=== PATIENT | male | born 1970 | race Caucasian/White ===

== ENCOUNTER 2019-11-26 16:00 | Inpatient (IN) ==
[2019-11-26 16:58] LABS: Basophils # 0.1 K/mcL (0.0-0.2); Basophils % 0.7 %; Eosinophils % 0.4 %; Hematocrit 38.8 % (37.5-50.1); Hemoglobin 13.4 g/dL (12.9-16.9); Immature Granulocytes % 0.7 % (0-4); Lymphocytes # 1.9 K/mcL (0.6-4.6); Lymphocytes % 25.9 %; Mean Corpuscular HGB Conc 34.5 g/dL (31.6-35.5); Mean Corpuscular Hemoglobin 34.3 pg (28.0-33.3); Mean Corpuscular Volume 99.2 fL (83.0-100.0); Mean Platelet Volume 9.9 fL (9.4-12.4); Monocytes # 0.8 K/mcL (0.0-1.3); Monocytes % 10.5 %; Neutrophils # 4.5 K/mcL (1.6-8.9); Platelet Count 133 K/mcL (140-400); Red Blood Count 3.91 M/mcL (4.19-5.50); Segmented Neutrophils % 61.8 %; White Blood Count 7.2 K/mcL (4.3-11.1)
[2019-11-26 17:05] LABS: INR 1.2; Prothrombin Time 14.1 Seconds (9.4-12.1)
[2019-11-26 17:07] LABS: Activated Partial Thrombo Time 29.9 Seconds (26.0-36.0)
[2019-11-26 17:20] LABS: Alanine Aminotransferase 98 Units/L (7-52); Albumin 2.8 g/dL (3.5-5.7); Albumin/Globulin Ratio 1.1 (1.1-2.2); Alkaline Phosphatase 203 Units/L (34-104); Amylase 36 Units/L (29-103); Aspartate Amino Transferase 237 Units/L (13-39); BUN/Creatinine Ratio 20 (6-26); Bilirubin,Direct 0.9 mg/dL (0.0-0.2); Bilirubin,Indirect 1.1 mg/dL (0.0-1.0); Blood Urea Nitrogen 11 mg/dL (6-20); Calcium 7.8 mg/dL (8.6-10.3); Carbon Dioxide 29 mEq/L (23-29); Chloride 94 mEq/L (98-107); Globulin 2.6 g/dL (2.4-3.5); Glucose 87 mg/dL (70-105); Lipase 104 Units/L (11-82); Osmolality,Calculated 273 (280-300); Potassium 3.4 mEq/L (3.5-5.1); Sodium 132 mEq/L (136-145); Total Protein 5.4 g/dL (6.4-8.9); Troponin I 0.03 ng/mL (< 0.04); eGFR For African Americans > 60 (> 60); eGFR For Non-African Americans > 60 (> 60)
[2019-11-26] MEDS ORDERED: cefTRIAXone 1,000 MG in Water for inj. (sterile) 10 ML IVP ONE ×2 (17:20→18:21)
[2019-11-26] MEDS ORDERED: MetroNIDAZOLE 500 MG/100 ML 500 MG/100 ML BAG IVPB ONE (17:48)
[2019-11-26] MEDS ORDERED: Nicotine 2 MG GUM BC PRN (18:19)
[2019-11-26] MEDS ORDERED: *HR* LORazepam 2 MG/ML VIAL IVP PRN (18:19)
[2019-11-26 18:29] LABS: RBC,Peritoneal Fluid < 0.002 M/mcL
[2019-11-26 18:50] LABS: Glucose,Peritoneal Fluid 91 mg/dL (No Ref Range); LDH,Peritoneal Fluid 110 Units/L (No Ref Range); Total Protein,Peritoneal Fluid < 3.0 g/dL
[2019-11-26] MEDS: Folic Acid 1 MG TABLET PO SCH (20:20)
[2019-11-26] MEDS: Vitamin B Complex/Vit C/Vit E 1 EACH TABLET PO SCH (20:20)
[2019-11-26] MEDS: Thiamine (B-1) 100 MG TABLET PO SCH (20:20)
[2019-11-26 20:25] LABS: Basophils,Peritoneal Fluid 0 %; Eosinophils,Peritoneal Fluid 0 %
[2019-11-26 20:46] LABS: Appearance of Peritoneal Fl CLEAR (Clear)
[2019-11-26] MEDS: Albumin 25% 25gram/100mL 25 GM/100 ML IV.SOLN IVC SCH ×2 (21:15→23:07)
[2019-11-26] MEDS: *HR* LORazepam 2 MG/ML VIAL IVP PRN (21:16)
[2019-11-26] MEDS: Lactulose Oral Soln 20 GM/30 ML UDC PO SCH (21:16)
[2019-11-26] MEDS: Azithromycin 250 MG TABLET PO SCH (21:26)
[2019-11-26 22:36] LABS: Bilirubin,Urine Small (Negative); Blood,Urine Negative (Negative); Clarity,Urine Clear (Clear); Color,Urine Dark Yellow (Yellow); Glucose,Urine (UA) Normal (Normal); Ketones,Urine Trace mg/dL (Negative); Leukocyte Esterase,Urine Negative (Negative); Nitrite,Urine Negative (Negative); PH,Urine 6.5 pH Units (5.0-8.0); Protein,Urine Trace mg/dL (Neg-Trace); Specific Gravity,Urine > 1.030 (1.010-1.025)
[2019-11-26] MEDS: metroNIDAZOLE 500 MG TABLET PO SCH (23:14)
[2019-11-27] MEDS: Albumin 25% 25gram/100mL 25 GM/100 ML IV.SOLN IVC SCH ×4 (00:49→05:46)
[2019-11-27] MEDS: *HR* LORazepam 2 MG/ML VIAL IVP PRN ×2 (00:58→13:45)
[2019-11-27] MEDS ORDERED: Ibuprofen 600 MG TABLET PO ONE (03:25)
[2019-11-27 07:46] LABS: Basophils % 0.3 %; Eosinophils % 0.6 %; Hematocrit 33.8 % (37.5-50.1); Immature Granulocytes % 0.4 % (0-4); Lymphocytes # 2.2 K/mcL (0.6-4.6); Lymphocytes % 31.9 %; Mean Corpuscular HGB Conc 33.7 g/dL (31.6-35.5); Mean Corpuscular Hemoglobin 33.9 pg (28.0-33.3); Mean Corpuscular Volume 100.6 fL (83.0-100.0); Mean Platelet Volume 9.6 fL (9.4-12.4); Monocytes # 0.9 K/mcL (0.0-1.3); Monocytes % 13.2 %; Neutrophils # 3.8 K/mcL (1.6-8.9); Platelet Count 110 K/mcL (140-400); Red Blood Count 3.36 M/mcL (4.19-5.50); Segmented Neutrophils % 53.6 %
[2019-11-27 07:47] LABS: Hemoglobin 11.4 g/dL (12.9-16.9)
[2019-11-27 08:02] LABS: Alanine Aminotransferase 75 Units/L (7-52); Albumin 3.6 g/dL (3.5-5.7); Albumin/Globulin Ratio 1.9 (1.1-2.2); Alkaline Phosphatase 174 Units/L (34-104); Aspartate Amino Transferase 185 Units/L (13-39); BUN/Creatinine Ratio 14 (6-26); Bilirubin,Total 2.5 mg/dL (0.3-1.0); Blood Urea Nitrogen 9 mg/dL (6-20); Calcium 8.2 mg/dL (8.6-10.3); Carbon Dioxide 31 mEq/L (23-29); Chloride 98 mEq/L (98-107); Globulin 1.9 g/dL (2.4-3.5); Glucose 97 mg/dL (70-105); Osmolality,Calculated 279 (280-300); Potassium 3.5 mEq/L (3.5-5.1); Sodium 135 mEq/L (136-145); Total Protein 5.5 g/dL (6.4-8.9); eGFR For African Americans > 60 (> 60); eGFR For Non-African Americans > 60 (> 60)
[2019-11-27] MEDS: cefTRIAXone 2,000 MG in Water for inj. (sterile) 20 ML IVP SCH (09:07)
[2019-11-27] MEDS: Thiamine (B-1) 100 MG TABLET PO SCH (09:10)
[2019-11-27] MEDS: Azithromycin 250 MG TABLET PO SCH (09:10)
[2019-11-27] MEDS: metroNIDAZOLE 500 MG TABLET PO SCH ×3 (09:10→21:36)
[2019-11-27] MEDS: Vitamin B Complex/Vit C/Vit E 1 EACH TABLET PO SCH (09:15)
[2019-11-27] MEDS: Folic Acid 1 MG TABLET PO SCH (09:15)
[2019-11-27] MEDS: *HR* Promethazine 25 MG/ML VIAL IVP PRN ×2 (11:04→19:41)
[2019-11-27] MEDS: Lactulose Oral Soln 20 GM/30 ML UDC PO SCH (21:37)
[2019-11-27] MEDS ORDERED: Melatonin 3 MG TABLET PO ONE (23:04)
[2019-11-28 00:58] LABS: Eosinophils % 1.2 %; Mean Platelet Volume 10.2 fL (9.4-12.4)
[2019-11-28 01:00] LABS: Basophils % 0.4 %; Eosinophils # 0.1 K/mcL (0.0-0.6); Hematocrit 34.3 % (37.5-50.1); Hemoglobin 11.7 g/dL (12.9-16.9); Immature Granulocytes % 0.9 % (0-4); Immature Platelets 2.9 % (1.1-6.1); Lymphocytes # 1.9 K/mcL (0.6-4.6); Mean Corpuscular HGB Conc 34.1 g/dL (31.6-35.5); Mean Corpuscular Hemoglobin 34.4 pg (28.0-33.3); Mean Corpuscular Volume 100.9 fL (83.0-100.0); Monocytes # 0.8 K/mcL (0.0-1.3); Monocytes % 13.2 %; Neutrophils # 2.9 K/mcL (1.6-8.9); Platelet Count 100 K/mcL (140-400); Red Cell Distribution Width 13.5 % (11.5-14.5); Segmented Neutrophils % 50.3 %; White Blood Count 5.7 K/mcL (4.3-11.1)
[2019-11-28 01:15] LABS: Alanine Aminotransferase 69 Units/L (7-52); Albumin 3.2 g/dL (3.5-5.7); Albumin/Globulin Ratio 1.5 (1.1-2.2); Alkaline Phosphatase 166 Units/L (34-104); Aspartate Amino Transferase 159 Units/L (13-39); BUN/Creatinine Ratio 12 (6-26); Bilirubin,Total 2.5 mg/dL (0.3-1.0); Blood Urea Nitrogen 7 mg/dL (6-20); Carbon Dioxide 26 mEq/L (23-29); Chloride 102 mEq/L (98-107); Globulin 2.1 g/dL (2.4-3.5); Glucose 97 mg/dL (70-105); Osmolality,Calculated 278 (280-300); Potassium 3.4 mEq/L (3.5-5.1); Sodium 135 mEq/L (136-145); Total Protein 5.3 g/dL (6.4-8.9); eGFR For African Americans > 60 (> 60); eGFR For Non-African Americans > 60 (> 60)
[2019-11-28 01:17] LABS: Platelet Estimate Decreased (Normal)
[2019-11-28] MEDS: cefTRIAXone 2,000 MG in Water for inj. (sterile) 20 ML IVP SCH (07:59)
[2019-11-28] MEDS: Folic Acid 1 MG TABLET PO SCH (08:00)
[2019-11-28] MEDS: metroNIDAZOLE 500 MG TABLET PO SCH ×3 (08:00→21:15)
[2019-11-28] MEDS: Thiamine (B-1) 100 MG TABLET PO SCH (08:00)
[2019-11-28] MEDS: Azithromycin 250 MG TABLET PO SCH (08:00)
[2019-11-28] MEDS: Vitamin B Complex/Vit C/Vit E 1 EACH TABLET PO SCH (08:00)
[2019-11-28] MEDS ORDERED: Gadolinium Contrast Agent (WT Based) IV PRN (11:35)
[2019-11-28] MEDS ORDERED: Furosemide 20 MG TABLET PO PRN (11:56)
[2019-11-28] MEDS: *HR* LORazepam 2 MG/ML VIAL IVP PRN ×2 (21:14)
[2019-11-28] MEDS: Lactulose Oral Soln 20 GM/30 ML UDC PO SCH (21:15)
[2019-11-28 23:09] LABS: Fluid Source for Albumin ASCITES
[2019-11-29] MEDS ORDERED: *HR* OxyCODONE Immed Rel 5 MG TABLET PO PRN (00:01)
[2019-11-29] MEDS: cefTRIAXone 2,000 MG in Water for inj. (sterile) 20 ML IVP SCH (07:52)
[2019-11-29] MEDS: Thiamine (B-1) 100 MG TABLET PO SCH (07:53)
[2019-11-29] MEDS: metroNIDAZOLE 500 MG TABLET PO SCH ×3 (07:53→19:03)
[2019-11-29] MEDS: Vitamin B Complex/Vit C/Vit E 1 EACH TABLET PO SCH (07:53)
[2019-11-29] MEDS: Folic Acid 1 MG TABLET PO SCH (07:53)
[2019-11-29] MEDS: Azithromycin 250 MG TABLET PO SCH (07:53)
[2019-11-29] MEDS: *HR* HYDROcodone/Acet 5/325 mg TABLET PO PRN ×2 (08:35→22:36)
[2019-11-29 08:55] LABS: Hematocrit 40.4 % (37.5-50.1); Hemoglobin 13.9 g/dL (12.9-16.9); Immature Platelets 2.9 % (1.1-6.1); Mean Corpuscular HGB Conc 34.4 g/dL (31.6-35.5); Mean Corpuscular Hemoglobin 34.9 pg (28.0-33.3); Mean Corpuscular Volume 101.5 fL (83.0-100.0); Mean Platelet Volume 10.4 fL (9.4-12.4); Neutrophils # 4.1 K/mcL (1.6-8.9); Platelet Count 131 K/mcL (140-400); Red Blood Count 3.98 M/mcL (4.19-5.50); Red Cell Distribution Width 13.2 % (11.5-14.5); White Blood Count 7.6 K/mcL (4.3-11.1)
[2019-11-29 09:13] LABS: Alanine Aminotransferase 62 Units/L (7-52); Albumin 3.5 g/dL (3.5-5.7); Albumin/Globulin Ratio 1.4 (1.1-2.2); Alkaline Phosphatase 154 Units/L (34-104); Aspartate Amino Transferase 118 Units/L (13-39); BUN/Creatinine Ratio 17 (6-26); Bilirubin,Total 2.1 mg/dL (0.3-1.0); Blood Urea Nitrogen 11 mg/dL (6-20); Calcium 8.5 mg/dL (8.6-10.3); Carbon Dioxide 22 mEq/L (23-29); Chloride 106 mEq/L (98-107); Globulin 2.5 g/dL (2.4-3.5); Glucose 103 mg/dL (70-105); Osmolality,Calculated 282 (280-300); Potassium 3.5 mEq/L (3.5-5.1); Sodium 136 mEq/L (136-145); eGFR For African Americans > 60 (> 60); eGFR For Non-African Americans > 60 (> 60)
[2019-11-29 09:43] LABS: Basophils # 0.2 K/mcL (0.0-0.2); Lymphocytes # 2.9 K/mcL (0.6-4.6); Monocytes # 0.5 K/mcL (0.0-1.3); Platelet Estimate Slight Decrease (Normal); Reactive Lymphocytes Present (Not Present)
[2019-11-29 09:44] LABS: Hypochromasia Present (Not Present); Polychromasia 1+ (Not Present)
[2019-11-29] MEDS: *HR* OxyCODONE Immed Rel 5 MG TABLET PO ONE ×2 (14:25→14:28)
[2019-11-29] MEDS: Lactulose Oral Soln 20 GM/30 ML UDC PO SCH (19:02)
[2019-11-29] MEDS: *HR* LORazepam 2 MG/ML VIAL IVP PRN (19:03)
[2019-11-30] MEDS: *HR* LORazepam 2 MG/ML VIAL IVP PRN ×2 (02:43→13:35)
[2019-11-30 03:24] LABS: Basophils % 0.4 %; Eosinophils # 0.1 K/mcL (0.0-0.6); Hematocrit 37.5 % (37.5-50.1); Hemoglobin 12.6 g/dL (12.9-16.9); Immature Granulocytes % 0.9 % (0-4); Lymphocytes # 2.2 K/mcL (0.6-4.6); Lymphocytes % 22.7 %; Mean Corpuscular HGB Conc 33.6 g/dL (31.6-35.5); Mean Corpuscular Hemoglobin 34.5 pg (28.0-33.3); Mean Corpuscular Volume 102.7 fL (83.0-100.0); Mean Platelet Volume 10.8 fL (9.4-12.4); Monocytes # 0.7 K/mcL (0.0-1.3); Monocytes % 6.7 %; Neutrophils # 6.7 K/mcL (1.6-8.9); Platelet Count 138 K/mcL (140-400); Red Blood Count 3.65 M/mcL (4.19-5.50); Red Cell Distribution Width 13.7 % (11.5-14.5); Segmented Neutrophils % 68.3 %; White Blood Count 9.8 K/mcL (4.3-11.1)
[2019-11-30 03:43] LABS: Alanine Aminotransferase 51 Units/L (7-52); Albumin 3.2 g/dL (3.5-5.7); Albumin/Globulin Ratio 1.4 (1.1-2.2); Alkaline Phosphatase 150 Units/L (34-104); Aspartate Amino Transferase 81 Units/L (13-39); BUN/Creatinine Ratio 27 (6-26); Bilirubin,Total 1.8 mg/dL (0.3-1.0); Blood Urea Nitrogen 17 mg/dL (6-20); Calcium 8.6 mg/dL (8.6-10.3); Carbon Dioxide 22 mEq/L (23-29); Chloride 108 mEq/L (98-107); Globulin 2.3 g/dL (2.4-3.5); Glucose 95 mg/dL (70-105); Osmolality,Calculated 283 (280-300); Potassium 3.8 mEq/L (3.5-5.1); Sodium 136 mEq/L (136-145); Total Protein 5.5 g/dL (6.4-8.9); eGFR For African Americans > 60 (> 60); eGFR For Non-African Americans > 60 (> 60)
[2019-11-30] MEDS: cefTRIAXone 2,000 MG in Water for inj. (sterile) 20 ML IVP SCH (09:38)
[2019-11-30] MEDS: metroNIDAZOLE 500 MG TABLET PO SCH ×3 (09:39→21:43)
[2019-11-30] MEDS: Vitamin B Complex/Vit C/Vit E 1 EACH TABLET PO SCH (09:39)
[2019-11-30] MEDS: Thiamine (B-1) 100 MG TABLET PO SCH (09:40)
[2019-11-30] MEDS: Folic Acid 1 MG TABLET PO SCH (09:41)
[2019-11-30] MEDS: Lactulose Oral Soln 20 GM/30 ML UDC PO SCH (21:41)
[2019-11-30] MEDS: *HR* HYDROcodone/Acet 5/325 mg TABLET PO PRN (21:43)
[2019-12-01] MEDS: traZODone 50 MG TABLET PO PRN ×2 (01:14→20:47)
[2019-12-01 05:45] LABS: Hematocrit 37.3 % (37.5-50.1); Hemoglobin 12.4 g/dL (12.9-16.9); Mean Corpuscular HGB Conc 33.2 g/dL (31.6-35.5); Mean Corpuscular Hemoglobin 34.4 pg (28.0-33.3); Mean Corpuscular Volume 103.6 fL (83.0-100.0); Mean Platelet Volume 10.6 fL (9.4-12.4); Platelet Count 136 K/mcL (140-400); Red Cell Distribution Width 13.3 % (11.5-14.5); White Blood Count 8.3 K/mcL (4.3-11.1)
[2019-12-01 05:47] LABS: INR 1.5
[2019-12-01 06:11] LABS: BUN/Creatinine Ratio 28 (6-26); Blood Urea Nitrogen 17 mg/dL (6-20); Calcium 8.3 mg/dL (8.6-10.3); Carbon Dioxide 22 mEq/L (23-29); Chloride 108 mEq/L (98-107); Glucose 123 mg/dL (70-105); Osmolality,Calculated 285 (280-300); Potassium 3.5 mEq/L (3.5-5.1); Sodium 136 mEq/L (136-145); eGFR For African Americans > 60 (> 60); eGFR For Non-African Americans > 60 (> 60)
[2019-12-01 06:12] LABS: Albumin 3.1 g/dL (3.5-5.7); Albumin/Globulin Ratio 1.3 (1.1-2.2); Bilirubin,Direct 0.6 mg/dL (0.0-0.2); Bilirubin,Indirect 0.8 mg/dL (0.0-1.0); Bilirubin,Total 1.4 mg/dL (0.3-1.0); Globulin 2.3 g/dL (2.4-3.5); Total Protein 5.4 g/dL (6.4-8.9)
[2019-12-01] MEDS: metroNIDAZOLE 500 MG TABLET PO SCH ×3 (08:51→20:46)
[2019-12-01] MEDS: Folic Acid 1 MG TABLET PO SCH (08:51)
[2019-12-01] MEDS: Vitamin B Complex/Vit C/Vit E 1 EACH TABLET PO SCH (08:51)
[2019-12-01] MEDS: cefTRIAXone 2,000 MG in Water for inj. (sterile) 20 ML IVP SCH (08:52)
[2019-12-01] MEDS: Thiamine (B-1) 100 MG TABLET PO SCH (08:52)
[2019-12-01] MEDS: Furosemide 20 MG TABLET PO SCH (08:52)
[2019-12-01] MEDS: Lactulose Oral Soln 20 GM/30 ML UDC PO SCH (20:46)
[2019-12-02 07:48] VITALS: BP 132/74
[2019-12-02] MEDS: Vitamin B Complex/Vit C/Vit E 1 EACH TABLET PO SCH (09:36)
[2019-12-02] MEDS: Thiamine (B-1) 100 MG TABLET PO SCH (09:36)
[2019-12-02] MEDS: metroNIDAZOLE 500 MG TABLET PO SCH (09:36)
[2019-12-02] MEDS: Furosemide 20 MG TABLET PO SCH (09:36)
[2019-12-02] MEDS: Folic Acid 1 MG TABLET PO SCH (09:36)
== END 2019-12-02 12:05 | disposition home or self-care (01) | DRG 432 ==
LOC: EMEROOARM 16:00 → 3ANU 16:00 → SUATTDRO 19:29 → 3ANU 19:31 → SUATTDRO 11-27 11:13
PROVIDERS: ADMIT Internal Medicine; ATTEND Internal Medicine

== ENCOUNTER 2020-09-22 13:13 | Inpatient (IN) ==
[2020-09-22] MEDS ORDERED: Ondansetron 4 MG/2 ML VIAL IVP ONE (13:25)
[2020-09-22] MEDS ORDERED: 0.9 % Sodium Chloride 1,000 ML IVC ONE (13:25)
[2020-09-22] MEDS ORDERED: *HR* LORazepam 2 MG/ML VIAL IVP ONE (13:25)
[2020-09-22] MEDS ORDERED: Pantoprazole 80 MG in 0.9 % Sodium Chloride 50 ML IVPB ONE (13:25)
[2020-09-22] MEDS ORDERED: Isovue-370 500 ML BOTTLE IVP ONE (13:27)
[2020-09-22] MEDS ORDERED: Pantoprazole 40 MG in 0.9 % Sodium Chloride Mini Bag 100 ML IVC SCH (13:30)
[2020-09-22] MEDS ORDERED: Pantoprazole 40 MG VIAL IVP ONE (13:32)
[2020-09-22 14:12] LABS: INR 1.2; Prothrombin Time 13.9 Seconds (9.4-12.1)
[2020-09-22 14:15] LABS: Basophils % 0.6 %; Eosinophils % 0.5 %; Hematocrit 41.8 % (37.5-50.1); Hemoglobin 14.3 g/dL (12.9-16.9); Immature Granulocytes % 0.2 % (0-4); Lymphocytes # 2.4 K/mcL (0.6-4.6); Lymphocytes % 36.3 %; Mean Corpuscular HGB Conc 34.2 g/dL (31.6-35.5); Mean Corpuscular Hemoglobin 30.8 pg (28.0-33.3); Mean Corpuscular Volume 90.1 fL (83.0-100.0); Mean Platelet Volume 10.1 fL (9.4-12.4); Monocytes # 0.5 K/mcL (0.0-1.3); Monocytes % 7.4 %; Neutrophils # 3.6 K/mcL (1.6-8.9); Platelet Count 115 K/mcL (140-400); Red Blood Count 4.64 M/mcL (4.19-5.50); Red Cell Distribution Width 14.9 % (11.5-14.5); White Blood Count 6.6 K/mcL (4.3-11.1)
[2020-09-22 14:45] LABS: Alanine Aminotransferase 134 Units/L (7-52); Albumin 3.5 g/dL (3.5-5.7); Albumin/Globulin Ratio 1.1 (1.1-2.2); Alkaline Phosphatase 165 Units/L (34-104); Aspartate Amino Transferase 262 Units/L (13-39); BUN/Creatinine Ratio 17 (6-26); Bilirubin,Total 1.8 mg/dL (0.3-1.0); Blood Urea Nitrogen 15 mg/dL (6-20); Carbon Dioxide 25 mEq/L (23-29); Chloride 97 mEq/L (98-107); Ethanol 271 mg/dL (Less than 10); Globulin 3.1 g/dL (2.4-3.5); Glucose 99 mg/dL (70-105); Lipase 151 Units/L (11-82); Osmolality,Calculated 281 (280-300); Potassium 3.7 mEq/L (3.5-5.1); Sodium 135 mEq/L (136-145); Total Protein 6.6 g/dL (6.4-8.9); Troponin I < 0.03 ng/mL (< 0.04); eGFR For African Americans > 60 (> 60); eGFR For Non-African Americans > 60 (> 60)
[2020-09-22 16:04] LABS: Amorphous Sediment,Urine Few per hpf (None-Few); Bacteria,Urine Few per hpf (None-Few); Bilirubin,Urine Negative (Negative); Blood,Urine Negative (Negative); Clarity,Urine Turbid (Clear); Color,Urine Yellow (Yellow); Glucose,Urine (UA) Normal (Normal); Hyaline Casts,Urine Few per lpf (None Seen); Ketones,Urine Trace mg/dL (Negative); Leukocyte Esterase,Urine Negative (Negative); Mucus,Urine Few per lpf (None-Few); Nitrite,Urine Negative (Negative); Protein,Urine Trace mg/dL (Neg-Trace); RBC,Urine 0-3 per hpf (0-3); Specific Gravity,Urine 1.018 (1.010-1.025); WBC,Urine 0-3 per hpf (0-3)
[2020-09-22 16:13] LABS: Amphetamine Screen,Urine Negative ng/mL (Cutoff=1000); Barbiturate Screen,Urine Negative ng/mL (Cutoff=200); Benzodiazepines Screen,Urine Positive ng/mL (Cutoff=200); Cannabinoid Screen,Urine Positive ng/mL (Cutoff = 50); Cocaine Screen,Urine Negative ng/mL (Cutoff= 300); Opiate Screen,Urine Negative ng/mL (Cutoff=300); Phencyclidine Screen,Urine Negative ng/mL (Cutoff=25)
[2020-09-22] MEDS ORDERED: *HR* LORazepam 2 MG/ML VIAL IVP PRN (17:46)
[2020-09-22] MEDS ORDERED: Naloxone 0.4 MG/ML INJ IVP PRN (17:48)
[2020-09-22] MEDS ORDERED: Acetaminophen 325 MG TABLET PO PRN (17:48)
[2020-09-22] MEDS: *HR* LORazepam 2 MG/ML VIAL IVP PRN ×3 (18:33→22:02)
[2020-09-22] MEDS: *HR* Heparin 5,000 UNIT/ML VIAL SQ SCH (18:34)
[2020-09-22] MEDS: Thiamine (B-1) 200 MG in 0.9 % Sodium Chloride 50 ML IVPB SCH (18:34)
[2020-09-22] MEDS: Folic Acid 1 MG in 0.9 % Sodium Chloride 50 ML IVPB SCH (18:35)
[2020-09-22] MEDS: Pantoprazole 40 MG VIAL IVP SCH (20:06)
[2020-09-23] MEDS ORDERED: Dextrose Gel 15 GM/37.5 ML TUBE PO PRN ×2 (00:40)
[2020-09-23] MEDS ORDERED: D5% in Water 1,000 ML IVC PRN (00:40)
[2020-09-23] MEDS ORDERED: *HR* Dextrose 50 % in Water (Vial) 50 ML VIAL IVP PRN (00:40)
[2020-09-23] MEDS: Melatonin 3 MG TABLET PO SCH ×2 (01:31→20:04)
[2020-09-23] MEDS: *HR* LORazepam 2 MG/ML VIAL IVP PRN ×6 (04:33→23:02)
[2020-09-23] MEDS: *HR* Heparin 5,000 UNIT/ML VIAL SQ SCH ×2 (05:14→17:05)
[2020-09-23] MEDS: Pantoprazole 40 MG VIAL IVP SCH ×2 (05:15→17:06)
[2020-09-23 05:40] LABS: Basophils % 0.5 %; Immature Granulocytes % 0.3 % (0-4)
[2020-09-23 05:41] LABS: Eosinophils # 0.1 K/mcL (0.0-0.6); Eosinophils % 1.1 %; Hematocrit 39.6 % (37.5-50.1); Hemoglobin 13.6 g/dL (12.9-16.9); Immature Platelets 3.9 % (1.1-6.1); Lymphocytes # 2.3 K/mcL (0.6-4.6); Lymphocytes % 38.4 %; Mean Corpuscular HGB Conc 34.3 g/dL (31.6-35.5); Mean Corpuscular Hemoglobin 31.1 pg (28.0-33.3); Mean Corpuscular Volume 90.4 fL (83.0-100.0); Mean Platelet Volume 10.5 fL (9.4-12.4); Monocytes # 0.5 K/mcL (0.0-1.3); Monocytes % 8.4 %; Neutrophils # 3.1 K/mcL (1.6-8.9); Red Blood Count 4.38 M/mcL (4.19-5.50); Red Cell Distribution Width 15.1 % (11.5-14.5); Segmented Neutrophils % 51.3 %; White Blood Count 6.1 K/mcL (4.3-11.1)
[2020-09-23 05:59] LABS: Platelet Count 87 K/mcL (140-400)
[2020-09-23 06:00] LABS: Large Platelets Present (Not Present); Platelet Estimate Slight Decrease (Normal)
[2020-09-23 06:03] LABS: Alanine Aminotransferase 111 Units/L (7-52); Albumin 3.5 g/dL (3.5-5.7); Albumin/Globulin Ratio 1.3 (1.1-2.2); Alkaline Phosphatase 140 Units/L (34-104); Aspartate Amino Transferase 203 Units/L (13-39); BUN/Creatinine Ratio 14 (6-26); Bilirubin,Total 2.4 mg/dL (0.3-1.0); Blood Urea Nitrogen 14 mg/dL (6-20); Calcium 8.1 mg/dL (8.6-10.3); Carbon Dioxide 25 mEq/L (23-29); Chloride 101 mEq/L (98-107); Globulin 2.8 g/dL (2.4-3.5); Glucose 88 mg/dL (70-105); Lipase 112 Units/L (11-82); Osmolality,Calculated 286 (280-300); Potassium 3.5 mEq/L (3.5-5.1); Sodium 138 mEq/L (136-145); Total Protein 6.3 g/dL (6.4-8.9); eGFR For African Americans > 60 (> 60); eGFR For Non-African Americans > 60 (> 60)
[2020-09-23] MEDS: Thiamine (B-1) 200 MG in 0.9 % Sodium Chloride 50 ML IVPB SCH (12:38)
[2020-09-23] MEDS: Folic Acid 1 MG in 0.9 % Sodium Chloride 50 ML IVPB SCH (12:38)
[2020-09-23 15:57] LABS: Hepatitis B Surface Antigen Nonreactive (Nonreactive)
[2020-09-23 16:26] LABS: Hepatitis B Core IgM Nonreactive (Nonreactive); Hepatitis C Virus Antibody Nonreactive (Nonreactive)
[2020-09-23 16:28] LABS: Hepatitis A Antibody IgM Nonreactive (Nonreactive)
[2020-09-24] MEDS: traZODone 50 MG TABLET PO SCH ×2 (01:38→20:20)
[2020-09-24 04:55] LABS: Basophils % 0.4 %; Segmented Neutrophils % 49.6 %
[2020-09-24 04:57] LABS: Eosinophils # 0.1 K/mcL (0.0-0.6); Eosinophils % 2.3 %; Hemoglobin 13.8 g/dL (12.9-16.9); Immature Granulocytes % 0.2 % (0-4); Immature Platelets 4.6 % (1.1-6.1); Lymphocytes # 2.1 K/mcL (0.6-4.6); Lymphocytes % 37.4 %; Mean Corpuscular HGB Conc 33.7 g/dL (31.6-35.5); Mean Corpuscular Hemoglobin 31.2 pg (28.0-33.3); Mean Corpuscular Volume 92.8 fL (83.0-100.0); Mean Platelet Volume 10.9 fL (9.4-12.4); Monocytes # 0.6 K/mcL (0.0-1.3); Monocytes % 10.1 %; Red Blood Count 4.42 M/mcL (4.19-5.50); Red Cell Distribution Width 14.5 % (11.5-14.5); White Blood Count 5.5 K/mcL (4.3-11.1)
[2020-09-24 05:00] LABS: Neutrophils # 2.7 K/mcL (1.6-8.9); Platelet Count 66 K/mcL (140-400)
[2020-09-24 05:12] LABS: Alanine Aminotransferase 94 Units/L (7-52); Albumin 3.5 g/dL (3.5-5.7); Albumin/Globulin Ratio 1.2 (1.1-2.2); Alkaline Phosphatase 128 Units/L (34-104); Aspartate Amino Transferase 189 Units/L (13-39); BUN/Creatinine Ratio 14 (6-26); Bilirubin,Total 2.9 mg/dL (0.3-1.0); Blood Urea Nitrogen 11 mg/dL (6-20); Calcium 8.5 mg/dL (8.6-10.3); Carbon Dioxide 24 mEq/L (23-29); Chloride 102 mEq/L (98-107); Globulin 2.9 g/dL (2.4-3.5); Glucose 103 mg/dL (70-105); Osmolality,Calculated 280 (280-300); Potassium 3.8 mEq/L (3.5-5.1); Sodium 135 mEq/L (136-145); Total Protein 6.4 g/dL (6.4-8.9); eGFR For African Americans > 60 (> 60); eGFR For Non-African Americans > 60 (> 60)
[2020-09-24] MEDS: *HR* Heparin 5,000 UNIT/ML VIAL SQ SCH (05:50)
[2020-09-24] MEDS: Pantoprazole 40 MG VIAL IVP SCH ×2 (05:50→16:53)
[2020-09-24] MEDS: Thiamine (B-1) 200 MG in 0.9 % Sodium Chloride 50 ML IVPB SCH (07:43)
[2020-09-24] MEDS: Folic Acid 1 MG in 0.9 % Sodium Chloride 50 ML IVPB SCH (07:44)
[2020-09-24] MEDS ORDERED: Metoclopramide 10 MG/2 ML VIAL IVP ONE (09:12)
[2020-09-24 11:23] LABS: Adenovirus Not Detected (Not Detect); Bordetella Pertussis Not Detected (Not Detect); Chlamydophila pneumoniae Not Detected (Not Detect); Coronavirus 229E Not Detected (Not Detect); Coronavirus HKU1 Not Detected (Not Detect); Coronavirus NL63 Not Detected (Not Detect); Coronavirus OC43 Not Detected (Not Detect); Human Metapneumovirus Not Detected (Not Detect); Human Rhinovirus/Enterovirus Not Detected (Not Detect); Influenza A Subtype 2009 H1 Not Detected (Not Detect); Influenza B Not Detected (Not Detect); Mycoplasma pneumoniae Not Detected (Not Detect); Parainfluenza Virus 1 Not Detected (Not Detect); Parainfluenza Virus 2 Not Detected (Not Detect); Parainfluenza Virus 3 Not Detected (Not Detect); Parainfluenza Virus 4 Not Detected (Not Detect); Respiratory Syncytial Virus Not Detected (Not Detect); SARS-CoV-2 Not Detected (Not Detect)
[2020-09-24] MEDS ORDERED: *HR* Propofol 200 MG/20 ML VIAL IVP ONE (12:01)
[2020-09-24] MEDS ORDERED: Lidocaine -MPF 2% 2 ML VIAL ONE (12:01)
[2020-09-24] MEDS ORDERED: *HR* Midazolam HCl 2 MG/2 ML VIAL ONE (12:22)
[2020-09-24] MEDS: *HR* LORazepam 2 MG/ML VIAL IVP PRN (16:58)
[2020-09-24] MEDS: Melatonin 3 MG TABLET PO SCH (20:20)
[2020-09-25 04:16] LABS: INR 1.2; Prothrombin Time 14.1 Seconds (9.4-12.1)
[2020-09-25 04:26] LABS: Alanine Aminotransferase 83 Units/L (7-52); Albumin 3.5 g/dL (3.5-5.7); Albumin/Globulin Ratio 1.3 (1.1-2.2); Alkaline Phosphatase 126 Units/L (34-104); Aspartate Amino Transferase 145 Units/L (13-39); BUN/Creatinine Ratio 15 (6-26); Bilirubin,Total 2.7 mg/dL (0.3-1.0); Blood Urea Nitrogen 15 mg/dL (6-20); Calcium 8.9 mg/dL (8.6-10.3); Carbon Dioxide 29 mEq/L (23-29); Chloride 102 mEq/L (98-107); Globulin 2.8 g/dL (2.4-3.5); Glucose 115 mg/dL (70-105); Osmolality,Calculated 284 (280-300); Potassium 3.8 mEq/L (3.5-5.1); Sodium 136 mEq/L (136-145); Total Protein 6.3 g/dL (6.4-8.9); eGFR For African Americans > 60 (> 60); eGFR For Non-African Americans > 60 (> 60)
[2020-09-25] MEDS: Pantoprazole 40 MG VIAL IVP SCH (05:29)
[2020-09-25] MEDS: *HR* LORazepam 2 MG/ML VIAL IVP PRN (09:15)
[2020-09-25 09:52] VITALS: BP 132/90
== END 2020-09-25 13:58 | disposition home or self-care (01) | DRG 368 ==
LOC: 3ANU 13:13 → EMEROOARM 13:13 → 3ANU 17:55
PROVIDERS: ADMIT Internal Medicine; ATTEND Internal Medicine

== ENCOUNTER 2020-09-26 20:39 | Observation (INO) ==
[2020-09-26] MEDS ORDERED: 0.9 % Sodium Chloride 1,000 ML IVC ONE (20:52)
[2020-09-26] MEDS ORDERED: *HR* LORazepam 2 MG/ML VIAL IM ONE (20:54)
[2020-09-26] MEDS ORDERED: Thiamine (B-1) 200 MG/2 ML VIAL IM ONE (20:54)
[2020-09-26] MEDS ORDERED: Folic Acid 1 MG in 0.9 % Sodium Chloride 50 ML IVPB ONE (20:54)
[2020-09-26 21:26] LABS: Basophils % 0.4 %; Mean Corpuscular Volume 94.2 fL (83.0-100.0); Red Cell Distribution Width 14.6 % (11.5-14.5)
[2020-09-26 21:28] LABS: Eosinophils # 0.2 K/mcL (0.0-0.6); Eosinophils % 2.3 %; Hematocrit 40.5 % (37.5-50.1); Hemoglobin 13.3 g/dL (12.9-16.9); Immature Granulocytes % 0.7 % (0-4); Immature Platelets 7.8 % (1.1-6.1); Mean Corpuscular HGB Conc 32.8 g/dL (31.6-35.5); Mean Corpuscular Hemoglobin 30.9 pg (28.0-33.3); Mean Platelet Volume 12.1 fL (9.4-12.4); Monocytes # 0.8 K/mcL (0.0-1.3); Monocytes % 9.1 %; Segmented Neutrophils % 59.5 %; White Blood Count 8.4 K/mcL (4.3-11.1)
[2020-09-26 21:34] LABS: INR 1.2; Prothrombin Time 13.7 Seconds (9.4-12.1)
[2020-09-26 21:37] LABS: Activated Partial Thrombo Time 30.1 Seconds (26.0-36.0)
[2020-09-26 21:47] LABS: Lymphocytes # 2.4 K/mcL (0.6-4.6); Platelet Count 66 K/mcL (140-400)
[2020-09-26 21:49] LABS: Alanine Aminotransferase 70 Units/L (7-52); Albumin 3.8 g/dL (3.5-5.7); Albumin/Globulin Ratio 1.3 (1.1-2.2); Alkaline Phosphatase 110 Units/L (34-104); Aspartate Amino Transferase 82 Units/L (13-39); BUN/Creatinine Ratio 25 (6-26); Bilirubin,Direct 0.4 mg/dL (0.0-0.2); Bilirubin,Indirect 1.1 mg/dL (0.0-1.0); Bilirubin,Total 1.5 mg/dL (0.3-1.0); Blood Urea Nitrogen 17 mg/dL (6-20); Calcium 9.3 mg/dL (8.6-10.3); Carbon Dioxide 24 mEq/L (23-29); Chloride 102 mEq/L (98-107); Glucose 99 mg/dL (70-105); Lipase 136 Units/L (11-82); Osmolality,Calculated 282 (280-300); Platelet Estimate Decreased (Normal); Potassium 3.8 mEq/L (3.5-5.1); Sodium 135 mEq/L (136-145); Total Protein 6.8 g/dL (6.4-8.9); eGFR For African Americans > 60 (> 60); eGFR For Non-African Americans > 60 (> 60)
[2020-09-26 21:55] LABS: Ethanol < 10 mg/dL (Less than 10)
[2020-09-26 22:27] LABS: Bilirubin,Urine Negative (Negative); Blood,Urine Negative (Negative); Clarity,Urine Clear (Clear); Color,Urine Yellow (Yellow); Glucose,Urine (UA) Normal (Normal); Ketones,Urine Negative (Negative); Leukocyte Esterase,Urine Negative (Negative); Nitrite,Urine Negative (Negative); Protein,Urine Negative (Neg-Trace); Specific Gravity,Urine 1.025 (1.010-1.025)
[2020-09-26 22:55] LABS: Amphetamine Screen,Urine Negative ng/mL (Cutoff=1000); Barbiturate Screen,Urine Negative ng/mL (Cutoff=200); Benzodiazepines Screen,Urine Positive ng/mL (Cutoff=200); Cannabinoid Screen,Urine Positive ng/mL (Cutoff = 50); Cocaine Screen,Urine Negative ng/mL (Cutoff= 300); Opiate Screen,Urine Negative ng/mL (Cutoff=300); Phencyclidine Screen,Urine Negative ng/mL (Cutoff=25)
[2020-09-26] MEDS ORDERED: Naloxone 0.4 MG/ML INJ IVP PRN (23:18)
[2020-09-26] MEDS ORDERED: *HR* Promethazine 25 MG/ML VIAL IM PRN (23:48)
[2020-09-26] MEDS ORDERED: *HR* LORazepam 2 MG/ML VIAL IVP PRN ×3 (23:48)
[2020-09-27] MEDS: *HR* OxyCODONE Immed Rel 5 MG TABLET PO PRN ×3 (05:55→21:36)
[2020-09-27] MEDS ORDERED: *HR* Heparin 5,000 UNIT/ML VIAL SQ SCH (06:00)
[2020-09-27 07:59] LABS: Hematocrit 38.3 % (37.5-50.1); Hemoglobin 12.7 g/dL (12.9-16.9); Mean Corpuscular HGB Conc 33.2 g/dL (31.6-35.5)
[2020-09-27 08:01] LABS: Basophils % 0.4 %; Eosinophils # 0.1 K/mcL (0.0-0.6); Eosinophils % 1.3 %; Immature Granulocytes % 0.8 % (0-4); Immature Platelets 7.7 % (1.1-6.1); Lymphocytes # 1.7 K/mcL (0.6-4.6); Lymphocytes % 19.1 %; Mean Corpuscular Hemoglobin 31.3 pg (28.0-33.3); Mean Corpuscular Volume 94.3 fL (83.0-100.0); Mean Platelet Volume 11.4 fL (9.4-12.4); Monocytes % 10.9 %; Red Blood Count 4.06 M/mcL (4.19-5.50); Red Cell Distribution Width 14.5 % (11.5-14.5); Segmented Neutrophils % 67.5 %; White Blood Count 9.1 K/mcL (4.3-11.1)
[2020-09-27 08:03] LABS: Neutrophils # 6.1 K/mcL (1.6-8.9); Platelet Count 62 K/mcL (140-400)
[2020-09-27 08:21] LABS: Alanine Aminotransferase 60 Units/L (7-52); Albumin 3.6 g/dL (3.5-5.7); Albumin/Globulin Ratio 1.3 (1.1-2.2); Alkaline Phosphatase 95 Units/L (34-104); Aspartate Amino Transferase 67 Units/L (13-39); BUN/Creatinine Ratio 23 (6-26); Bilirubin,Total 1.4 mg/dL (0.3-1.0); Blood Urea Nitrogen 15 mg/dL (6-20); Calcium 8.8 mg/dL (8.6-10.3); Carbon Dioxide 25 mEq/L (23-29); Chloride 102 mEq/L (98-107); Globulin 2.8 g/dL (2.4-3.5); Glucose 102 mg/dL (70-105); Osmolality,Calculated 277 (280-300); Potassium 3.8 mEq/L (3.5-5.1); Sodium 133 mEq/L (136-145); Total Protein 6.4 g/dL (6.4-8.9); eGFR For African Americans > 60 (> 60); eGFR For Non-African Americans > 60 (> 60)
[2020-09-27] MEDS ORDERED: *HR* OxyCODONE Immed Rel 5 MG TABLET PO ONE (10:47)
[2020-09-27] MEDS: traZODone 50 MG TABLET PO PRN (21:35)
[2020-09-27] MEDS: Acetaminophen 325 MG TABLET PO PRN (23:30)
[2020-09-28 06:03] LABS: Basophils % 0.2 %; Eosinophils # 0.2 K/mcL (0.0-0.6); Eosinophils % 1.9 %; Hemoglobin 12.7 g/dL (12.9-16.9); Immature Granulocytes % 1.1 % (0-4); Lymphocytes # 2.2 K/mcL (0.6-4.6); Lymphocytes % 26.7 %; Mean Corpuscular HGB Conc 33.4 g/dL (31.6-35.5); Mean Corpuscular Hemoglobin 31.2 pg (28.0-33.3); Mean Corpuscular Volume 93.4 fL (83.0-100.0); Mean Platelet Volume 11.3 fL (9.4-12.4); Monocytes # 1.4 K/mcL (0.0-1.3); Monocytes % 16.9 %; Neutrophils # 4.4 K/mcL (1.6-8.9); Red Blood Count 4.07 M/mcL (4.19-5.50); Red Cell Distribution Width 14.5 % (11.5-14.5); Segmented Neutrophils % 53.2 %; White Blood Count 8.3 K/mcL (4.3-11.1)
[2020-09-28 06:06] LABS: Platelet Count 71 K/mcL (140-400)
[2020-09-28] MEDS: *HR* OxyCODONE Immed Rel 5 MG TABLET PO PRN ×3 (06:12→20:28)
[2020-09-28 06:21] LABS: Alanine Aminotransferase 44 Units/L (7-52); Albumin 3.5 g/dL (3.5-5.7); Albumin/Globulin Ratio 1.3 (1.1-2.2); Alkaline Phosphatase 86 Units/L (34-104); Aspartate Amino Transferase 44 Units/L (13-39); BUN/Creatinine Ratio 25 (6-26); Bilirubin,Total 1.6 mg/dL (0.3-1.0); Blood Urea Nitrogen 16 mg/dL (6-20); Calcium 8.8 mg/dL (8.6-10.3); Carbon Dioxide 24 mEq/L (23-29); Chloride 101 mEq/L (98-107); Globulin 2.8 g/dL (2.4-3.5); Glucose 95 mg/dL (70-105); Osmolality,Calculated 275 (280-300); Potassium 3.5 mEq/L (3.5-5.1); Sodium 132 mEq/L (136-145); Total Protein 6.3 g/dL (6.4-8.9); eGFR For African Americans > 60 (> 60); eGFR For Non-African Americans > 60 (> 60)
[2020-09-28] MEDS: Folic Acid 1 MG TABLET PO SCH (08:08)
[2020-09-28] MEDS: Multivit/Ca/Min/Fe/FA 1 TAB TABLET PO SCH (08:08)
[2020-09-28] MEDS: Thiamine (B-1) 100 MG TABLET PO SCH (08:08)
[2020-09-28 08:14] LABS: Thyroid Stimulating Hormone 5.643 mcIU/mL (0.340-5.600)
[2020-09-28] MEDS ORDERED: 0.9 % Sodium Chloride 1,000 ML IVC SCH (11:15)
[2020-09-28 11:40] LABS: Adenovirus Not Detected (Not Detect); Bordetella Pertussis Not Detected (Not Detect); Chlamydophila pneumoniae Not Detected (Not Detect); Coronavirus 229E Not Detected (Not Detect); Coronavirus HKU1 Not Detected (Not Detect); Coronavirus NL63 Not Detected (Not Detect); Coronavirus OC43 Not Detected (Not Detect); Human Metapneumovirus Not Detected (Not Detect); Human Rhinovirus/Enterovirus Not Detected (Not Detect); Influenza A Subtype 2009 H1 Not Detected (Not Detect); Influenza B Not Detected (Not Detect); Mycoplasma pneumoniae Not Detected (Not Detect); Parainfluenza Virus 1 Not Detected (Not Detect); Parainfluenza Virus 2 Not Detected (Not Detect); Parainfluenza Virus 3 Not Detected (Not Detect); Parainfluenza Virus 4 Not Detected (Not Detect); Respiratory Syncytial Virus Not Detected (Not Detect); SARS-CoV-2 Not Detected (Not Detect)
[2020-09-28] MEDS: Venlafaxine XR (24 HR) 75 MG CAP.ER.24H PO SCH (15:31)
[2020-09-28 18:17] LABS: BUN/Creatinine Ratio 21 (6-26); Blood Urea Nitrogen 16 mg/dL (6-20); Calcium 8.7 mg/dL (8.6-10.3); Carbon Dioxide 24 mEq/L (23-29); Chloride 102 mEq/L (98-107); Glucose 109 mg/dL (70-105); Osmolality,Calculated 276 (280-300); Sodium 132 mEq/L (136-145); eGFR For African Americans > 60 (> 60); eGFR For Non-African Americans > 60 (> 60)
[2020-09-28] MEDS: Acetaminophen 325 MG TABLET PO PRN (18:45)
[2020-09-28] MEDS: Mirtazapine 15 MG TABLET PO SCH (22:08)
[2020-09-29 05:09] LABS: Basophils % 0.4 %; Eosinophils # 0.2 K/mcL (0.0-0.6); Eosinophils % 1.8 %; Hematocrit 36.1 % (37.5-50.1); Hemoglobin 11.9 g/dL (12.9-16.9); Immature Granulocytes % 0.9 % (0-4); Immature Platelets 6.8 % (1.1-6.1); Lymphocytes # 2.6 K/mcL (0.6-4.6); Lymphocytes % 31.3 %; Mean Corpuscular Hemoglobin 31.1 pg (28.0-33.3); Mean Corpuscular Volume 94.3 fL (83.0-100.0); Mean Platelet Volume 10.9 fL (9.4-12.4); Monocytes # 1.4 K/mcL (0.0-1.3); Monocytes % 17.2 %; Platelet Count 102 K/mcL (140-400); Red Blood Count 3.83 M/mcL (4.19-5.50); Red Cell Distribution Width 14.5 % (11.5-14.5); Segmented Neutrophils % 48.4 %; White Blood Count 8.2 K/mcL (4.3-11.1)
[2020-09-29 05:11] LABS: INR 1.3; Prothrombin Time 14.8 Seconds (9.4-12.1)
[2020-09-29 05:23] LABS: Alanine Aminotransferase 39 Units/L (7-52); Albumin 3.4 g/dL (3.5-5.7); Albumin/Globulin Ratio 1.2 (1.1-2.2); Alkaline Phosphatase 84 Units/L (34-104); Aspartate Amino Transferase 36 Units/L (13-39); BUN/Creatinine Ratio 21 (6-26); Bilirubin,Total 1.2 mg/dL (0.3-1.0); Blood Urea Nitrogen 16 mg/dL (6-20); Calcium 8.8 mg/dL (8.6-10.3); Carbon Dioxide 28 mEq/L (23-29); Chloride 103 mEq/L (98-107); Globulin 2.9 g/dL (2.4-3.5); Glucose 86 mg/dL (70-105); Osmolality,Calculated 284 (280-300); Potassium 4.1 mEq/L (3.5-5.1); Sodium 137 mEq/L (136-145); Total Protein 6.3 g/dL (6.4-8.9); eGFR For African Americans > 60 (> 60); eGFR For Non-African Americans > 60 (> 60)
[2020-09-29 05:39] LABS: Thyroid Stimulating Hormone 6.544 mcIU/mL (0.340-5.600)
[2020-09-29] MEDS: *HR* OxyCODONE Immed Rel 5 MG TABLET PO PRN ×3 (05:52→21:24)
[2020-09-29 07:10] LABS: Bilirubin,Urine Negative (Negative); Blood,Urine Negative (Negative); Clarity,Urine Clear (Clear); Color,Urine Yellow (Yellow); Glucose,Urine (UA) Normal (Normal); Ketones,Urine Negative (Negative); Leukocyte Esterase,Urine Negative (Negative); Nitrite,Urine Negative (Negative); Protein,Urine Trace mg/dL (Neg-Trace); Specific Gravity,Urine 1.028 (1.010-1.025); Urobilinogen,Urine Normal (Normal)
[2020-09-29] MEDS: Thiamine (B-1) 100 MG TABLET PO SCH (07:48)
[2020-09-29] MEDS: Venlafaxine XR (24 HR) 75 MG CAP.ER.24H PO SCH (07:48)
[2020-09-29] MEDS: Folic Acid 1 MG TABLET PO SCH (07:49)
[2020-09-29] MEDS: Multivit/Ca/Min/Fe/FA 1 TAB TABLET PO SCH (07:49)
[2020-09-29] MEDS: Mirtazapine 15 MG TABLET PO SCH (21:24)
[2020-09-29] MEDS: traZODone 50 MG TABLET PO PRN (22:31)
[2020-09-30] MEDS: *HR* OxyCODONE Immed Rel 5 MG TABLET PO PRN (06:01)
[2020-09-30 07:10] VITALS: BP 109/71
[2020-09-30] MEDS: Thiamine (B-1) 100 MG TABLET PO SCH (07:57)
[2020-09-30] MEDS: Multivit/Ca/Min/Fe/FA 1 TAB TABLET PO SCH (07:57)
[2020-09-30] MEDS: Venlafaxine XR (24 HR) 75 MG CAP.ER.24H PO SCH (07:57)
[2020-09-30] MEDS: Folic Acid 1 MG TABLET PO SCH (07:57)
[2020-09-30 08:24] LABS: Hematocrit 37.5 % (37.5-50.1); Hemoglobin 12.9 g/dL (12.9-16.9); Mean Corpuscular HGB Conc 34.4 g/dL (31.6-35.5); Mean Corpuscular Hemoglobin 31.1 pg (28.0-33.3); Mean Corpuscular Volume 90.4 fL (83.0-100.0); Mean Platelet Volume 9.8 fL (9.4-12.4); Platelet Count 184 K/mcL (140-400); Red Blood Count 4.15 M/mcL (4.19-5.50); Red Cell Distribution Width 14.1 % (11.5-14.5); White Blood Count 8.5 K/mcL (4.3-11.1)
== END 2020-09-30 10:30 | disposition home or self-care (01) ==
LOC: 3BNU 20:39 → EMEROOARM 20:39 → 3BNU 23:15
PROVIDERS: ADMIT Internal Medicine; ATTEND Internal Medicine